=== PATIENT | female | born 1995 | race Caucasian/White ===

== ENCOUNTER → 2018-12-30 | Outpatient (REF) | payer OTHER ==
[2018-12-30 22:20] LABS: CHLAMYDIA DNA AMPLIFICATION NEGATIVE (NEGATIVE); GC DNA AMPLIFICATION NEGATIVE (NEGATIVE)
== END ==
LOC: M SFHCLERA 14:38
PROVIDERS: ATTEND Nurse Practitioner Family
DX: R39.9 Unspecified symptoms and signs involving the genitourinary system (principal)